=== PATIENT | male | born 1990 | race Caucasian/White ===

== ENCOUNTER 2018-06-22 12:34 | Emergency (ER) | payer SELFPAY ==
[~2018-06-22] VITALS: Ht 185.4 cm; Wt 94.3 kg
[~2018-06-22 12:34] MED LIST: AGM875T PO; BENZ100C18 PO; CPR500T PO; FLT05NA16 NSEACH; GFN600TCR PO; IBP800T PO; METR500T PO; NAPR-243 PO; OXYC-12 PO; PRD20T PO; SULF1TAB38 PO; TRAM50TA2 PO
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
[2018-06-22] MEDS ORDERED: HYDROcodone/APAP 5 MG/325 MG (LORTAB) TAB PO STA (13:24)
--- NOTE | 2018-06-22 13:25 | Diagnostic Imaging Report ---
PATIENT HISTORY: Pain in the right hand after injury punching a tree yesterday. TECHNIQUE: 3 views of the right hand COMPARISON: None FINDINGS: No acute fracture or dislocation is seen in the right hand. There is mild angulation old posttraumatic deformity of the right fifth metacarpal. Alignment otherwise appears normal. Joint spaces are generally preserved. There is mild dorsal soft tissue edema. IMPRESSION: 1. No acute fracture is seen in the right hand. There is moderate dorsal soft tissue edema. 2. Right fifth metacarpal deformity from remote fracture. Dictated by: Dictated on workstation # [id number]
[2018-06-22] MEDS ORDERED: CEPH-507 PO (13:34)
[2018-06-22] MEDS ORDERED: TRAM50TA2 PO (13:34)
[2018-06-22 13:45] VITALS: BP 120/70
== END 2018-06-22 13:43 | disposition home or self-care (01) ==
LOC: EDUNIT# 12:34 → ER 12:35
DX: S61.411A Laceration without foreign body of right hand, initial encounter (principal); F17.210 Nicotine dependence, cigarettes, uncomplicated; F41.9 Anxiety disorder, unspecified; F32.9 Major depressive disorder, single episode, unspecified; W22.09XA Striking against other stationary object, initial encounter
CPT/HCPCS: 73130